=== PATIENT | female | born 1980 | race African-American/Black ===

== ENCOUNTER 2019-04-24 00:19 | Inpatient (IN) | payer OTHER ==
--- NOTE | 2019-04-24 01:23 | PDOC ---
History of Present Illness - General Chief Complaint: Blood Transfusion Stated Complaint: BLOOD TRANSFUSION Time Seen by Provider: 04/24/19 01:23 History Source: Patient Exam Limitations: No Limitations - History of Present Illness Initial Comments: 04/24/19 01:46 38yF w iron deficiency anemia 2/2 fibroids presenting w anemia requiring transfusion. Dr Iván MORENO scheduled fibroid removal surgery tomorrow, pre- op labs showed Hgb 5.7 3d ago, told to go to ED for blood transfusion today to be optimized for surgery. Associated lightheadness. No active bleeding noted in urine/bowel movements. Not on blood thinners. Has new mild R temporal headache for past hour. Denies fever, chest pain, SOB, ABD pain. Past History - Past Medical History Allergies/Adverse Reactions: Allergies Allergy/AdvReac Type Severity Reaction Status Date / Time tiotropium Allergy Severe TONGUE Verified 04/24/19 01:20 [From Spiriva with SWELLING HandiHaler] codeine Allergy Rash Verified 04/24/19 01:20 ASPIRI Allergy Severe CANT BREATH Uncoded 04/24/19 01:20 Home Medications: Ambulatory Orders Ferrous Gluconate [Fergon] 270 mg PO DAILY 04/24/19 Medroxyprogesterone Acetate [Provera] 10 mg PO DAILY 04/24/19 Anemia: Yes Asthma: Yes COPD: No Other medical history: uterine fibroids - Psycho Social/Smoking Cessation Hx Smoking History: Never smoked Hx Alcohol Use: No Drug/Substance Use Hx: No Review of Systems - Review of Systems Constitutional: No: Chills, Fever HEENTM: No: Eye Pain, Nose Pain, Throat Pain, Mouth Pain Respiratory: No: Cough, Shortness of Breath Cardiac (ROS): No: Chest Pain, Palpitations, Syncope ABD/GI: No: Abdominal Distended, Constipated, Diarrhea, Nausea, Vomiting : No: Burning, Dysuria, Flank Pain, Hematuria Musculoskeletal: No: Back Pain, Joint Pain Integumentary: No: Bruising, Dryness, Erythema Neurological: Yes: Headache. No: Numbness, Seizure, Tingling Psychiatric: No: Anxiety, Depression, Stressors Endocrine: No: Excessive Sweating, Flushing, Intolerance to Cold, Intolerance to Heat Hematologic/Lymphatic: Yes: Anemia *Physical Exam - Vital Signs Last Vital Signs Temp Pulse Resp BP Pulse Ox 98.3 F 84 14 137/72 100 01/12/20 01:05 04/24/19 01:05 04/24/19 01:05 04/24/19 01:05 04/24/19 01:05 - Physical Exam General Appearance: Yes: Nourished, Appropriately Dressed. No: Apparent Distress HEENT: positive: EOMI, YENNY, Normal Voice, Hearing Grossly Normal. negative: Scleral Icterus (R), Scleral Icterus (L), Nasal Congestion Respiratory/Chest: positive: Lungs Clear, Normal Breath Sounds. negative: Chest Tender, Respiratory Distress, Crackles, Rales, Rhonchi, Stridor, Wheezing Cardiovascular: positive: Regular Rhythm, Regular Rate, S1, S2, Systolic Murmur. negative: Edema Gastrointestinal/Abdominal: positive: Normal Bowel Sounds, Flat, Soft. negative : Tender, Organomegaly Integumentary: positive: Normal Color Neurologic: positive: pot sander II-XII NML intact, Fully Oriented, Alert, Normal Mood/ Affect, Normal Response, Responsive. negative: Numbness, Confused, Disoriented ED Treatment Course - LABORATORY CBC & Chemistry Diagram: 04/24/19 02:00 04/24/19 02:00 Medical Decision Making - Medical Decision Making 04/24/19 01:55 EKG NSR, HR 73, QTc 464, TWI V1 --- 38yF w iron deficiency anemia 2/2 fibroids presenting w lightheadedness d/t microcytic anemia (Hgb 5.5) from bleeding fibroids. Consented pt for blood transfusion, ordered 4u pRBC. Not . Given tylenol for headache. Found new systolic murmur on exam Called Dr Minor OBGYN - advised give blood transfusion, will not admit to OBGYN floor for indication Admit to m/s for anemia requiring transfusion Signed out to day team Discharge - Discharge Information Problems reviewed: Yes Clinical Impression/Diagnosis: Iron deficiency anemia due to chronic blood loss Condition: Stable Disposition: HOME - Admission No - Follow up/Referral Referrals: ON STAFF,NOT [Primary Care Provider] - - Patient Discharge Instructions Patient Printed Discharge Instructions: DI for Iron Deficiency Anemia-Adult Additional Instructions: You were seen for lightheadedness. Your blood count was low. We gave you blood Please follow up with your OBGYN doctor regarding your blood loss. Follow up with your primary care doctor regarding your heart murmur Come back to the ED if you lose consciousness, worsening chest pain, or trouble breathing - Post Discharge Activity
--- NOTE | 2019-04-24 01:25 | PDOC ---
Attending Attestation - Resident Resident Name: GuichoHipolito - ED Attending Attestation I have performed the following: I have examined & evaluated the patient, The case was reviewed & discussed with the resident, I agree w/resident's findings & plan - HPI HPI: 04/24/19 03:05 Pt was sent by her HAIR MACHINE OPERATOR for a blood transfusion prior to her HAIR MACHINE OPERATOR OR procedure tomorrow. Pt was found to have profound anemia. Here she will have basic labs and Type and screen prior to transfusion. - Physicial Exam PE: 04/24/19 03:06 Awake and alert x 3 No neuro deficits Abd soft NT ND chest clear Heart S1S2 RRR ext no clubbing cyanosis edema - Medical Decision Making 04/24/19 03:07 Pt has HB 5.5 She will get a 2U transfusion of PRBC. 04/24/19 06:10 Blood karoline is preparing the blood now, given the antibody screen just returned. Pt will get 4 U PRBC; each one requires 2 hrs for transfusion. She will be in the ER until noon. Pt will be signed out to the day team
[2019-04-24] MEDS ORDERED: ACETAMINOPHEN 1000 MG/100 ML VIAL (NON FORMULARY) IVPB ONE (01:45)
[2019-04-24] MEDS ORDERED: ACETAMINOPHEN INJECTION 100 ML IVPB ONE (02:03)
[2019-04-24 02:34] LABS: BASO % 0.6 % (0-2.0); EOS % 0.7 % (0-4.5); HEMATOCRIT 19.6 % (32.4-45.2); MCHC 27.9 g/dl (32.0-36.0); MEAN CELL VOLUME 69.5 fl (80-96); MEAN PLT VOLUME 6.8 fl (7.5-11.1); MONO % 8.2 % (3.8-10.2); NEUT % 49.5 % (42.8-82.8); PLATELET COUNT 335 K/MM3 (134-434); RBC 2.82 M/mm3 (3.60-5.2); RDW 20.2 % (11.6-15.6); WHITE BLOOD COUNT 6.4 K/mm3 (4.0-10.0)
[2019-04-24 02:55] LABS: MCH 19.4 pg (25.7-33.7)
[2019-04-24 02:57] LABS: ALBUMIN 3.3 g/dl (3.4-5.0); BILIRUBIN,TOTAL 0.3 mg/dL (0.2-1); BLOOD UREA NITROGEN 9.9 mg/dL (7-18); CALCIUM 8.5 mg/dL (8.5-10.1); CREATININE 0.8 mg/dL (0.55-1.3); INR 1.15 (0.83-1.09); PROTHROMBIN TIME (PATIENT) 13.6 SEC (9.7-13.0); TOT PROT 7.1 g/dl (6.4-8.2)
[2019-04-24 02:59] LABS: HEMOGLOBIN 5.5 GM/dL (10.7-15.3)
--- NOTE | 2019-04-24 07:16 | PDOC ---
*Physical Exam - Vital Signs Last Vital Signs Temp Pulse Resp BP Pulse Ox 98.3 F 84 14 137/72 100 04/24/19 01:05 04/24/19 01:05 04/24/19 01:05 04/24/19 01:05 04/24/19 01:05 ED Treatment Course - LABORATORY CBC & Chemistry Diagram: 04/24/19 02:00 04/24/19 02:00 - ADDITIONAL ORDERS Additional order review: Laboratory Results 04/24/19 04/24/19 04/24/19 02:00 02:00 02:00 PT with INR 13.60 H INR 1.15 H Sodium 139 Potassium 4.0 Chloride 108 H Carbon Dioxide 24 Anion Gap 6 L BUN 9.9 Creatinine 0.8 Est GFR (CKD-EPI)AfAm 108.39 Est GFR (CKD-EPI)NonAf 93.52 Random Glucose 117 H Calcium 8.5 Total Bilirubin 0.3 AST 13 L ALT 14 Alkaline Phosphatase 82 Total Protein 7.1 Albumin 3.3 L Serum , Qual Negative Blood Type Antibody Screen Crossmatch 04/24/19 02:00 PT with INR INR Sodium Potassium Chloride Carbon Dioxide Anion Gap BUN Creatinine Est GFR (CKD-EPI)AfAm Est GFR (CKD-EPI)NonAf Random Glucose Calcium Total Bilirubin AST ALT Alkaline Phosphatase Total Protein Albumin Serum , Qual Blood Type O POSITIVE Antibody Screen Positive Crossmatch See Detail 04/24/19 02:00 RBC 2.82 L MCV 69.5 L MCHC 27.9 L RDW 20.2 H MPV 6.8 L Neutrophils % 49.5 Lymphocytes % 41.0 H Monocytes % 8.2 Eosinophils % 0.7 Basophils % 0.6 - Medications Given in the ED: ED Medications Discontinued Medications Generic Name Dose Route Start Last Admin Trade Name Freq PRN Reason Stop Dose Admin Acetaminophen 1,000 mg 04/24/19 01:45 04/24/19 02:16 Ofirmev Injection - IVPB 04/24/19 01:46 1,000 mg ONCE ONE Administration Medical Decision Making - Medical Decision Making 04/24/19 07:16 Received sign out from Dr Lindo. Pt seen and assessed at bedside. Blood transfusion pending - not started yet. Pt only mildly lightheaded and hungry. VSS. Team spoke with pt's professor of nursing - does not want pt admitted to their service, will admit to med/surg hospitalist. Microblog sent. Admitting team accepted pt. Discharge - Discharge Information Problems reviewed: Yes Clinical Impression/Diagnosis: Iron deficiency anemia due to chronic blood loss Condition: Fair - Admission Yes - Follow up/Referral - Patient Discharge Instructions - Post Discharge Activity
--- NOTE | 2019-04-24 08:01 | PDOC ---
*Physical Exam - Vital Signs Last Vital Signs Temp Pulse Resp BP Pulse Ox 98.3 F 84 14 137/72 100 04/24/19 01:05 04/24/19 01:05 04/24/19 01:05 04/24/19 01:05 04/24/19 01:05 ED Treatment Course - LABORATORY CBC & Chemistry Diagram: 04/24/19 02:00 04/24/19 02:00 - ADDITIONAL ORDERS Additional order review: Laboratory Results 04/24/19 04/24/19 04/24/19 02:00 02:00 02:00 PT with INR 13.60 H INR 1.15 H Sodium 139 Potassium 4.0 Chloride 108 H Carbon Dioxide 24 Anion Gap 6 L BUN 9.9 Creatinine 0.8 Est GFR (CKD-EPI)AfAm 108.39 Est GFR (CKD-EPI)NonAf 93.52 Random Glucose 117 H Calcium 8.5 Total Bilirubin 0.3 AST 13 L ALT 14 Alkaline Phosphatase 82 Total Protein 7.1 Albumin 3.3 L Serum , Qual Negative Blood Type Antibody Screen Crossmatch 04/24/19 02:00 PT with INR INR Sodium Potassium Chloride Carbon Dioxide Anion Gap BUN Creatinine Est GFR (CKD-EPI)AfAm Est GFR (CKD-EPI)NonAf Random Glucose Calcium Total Bilirubin AST ALT Alkaline Phosphatase Total Protein Albumin Serum , Qual Blood Type O POSITIVE Antibody Screen Positive Crossmatch See Detail 04/24/19 02:00 RBC 2.82 L MCV 69.5 L MCHC 27.9 L RDW 20.2 H MPV 6.8 L Neutrophils % 49.5 Lymphocytes % 41.0 H Monocytes % 8.2 Eosinophils % 0.7 Basophils % 0.6 - Medications Given in the ED: ED Medications Discontinued Medications Generic Name Dose Route Start Last Admin Trade Name Freq PRN Reason Stop Dose Admin Acetaminophen 1,000 mg 04/24/19 01:45 04/24/19 02:16 Ofirmev Injection - IVPB 04/24/19 01:46 1,000 mg ONCE ONE Administration Medical Decision Making - Medical Decision Making 04/24/19 07:57 38yo female with symptomatic anemia needing 4units pRBC -pt scheduled for ACID ETCH OPERATOR procedure with Dr. Minor tomorrow -pt with anemia -transfusion ordered -microblog sent to [facility] for admission for symptomatic anemia/blood transfusion and preop for ACID ETCH OPERATOR tomorrow 04/24/19 08:48 the hospitalist has placed admission orders Discharge - Discharge Information Problems reviewed: Yes Clinical Impression/Diagnosis: Iron deficiency anemia due to chronic blood loss Condition: Fair - Admission Yes - Follow up/Referral - Patient Discharge Instructions - Post Discharge Activity
--- NOTE | 2019-04-24 08:29 | EKG ---
Test Reason : Blood Pressure : / mmHG Vent. Rate : 073 BPM Atrial Rate : 073 BPM P-R Int : 144 ms QRS Dur : 072 ms QT Int : 422 ms P-R-T Axes : 052 042 022 degrees QTc Int : 464 ms NORMAL SINUS RHYTHM LOW VOLTAGE QRS BORDERLINE ECG NO PREVIOUS ECGS AVAILABLE Confirmed by MAR WOODRUFF MD ([id number]) on 04/24/2019 8:29:27 AM Referred By: Confirmed By:MAR WOODRUFF MD
[2019-04-24 11:48] VITALS: BMI 38.7
--- NOTE | 2019-04-24 18:10 | HP ---
Admitting History and Physical - Primary Care Physician PCP: Stacy Minor - Admission Chief Complaint: lightheaded History of Present Illness: 38 year old female PMHx KIMMIE secondary to fibroids, scheduled for fibroid removal surgery tomorrow presents with hb 5.5 and sent to ED by clinical laboratory technician, Dr. Minor for blood transfusion preoperative. Patient states she has had a headache for a few days. Denies blood in urine and stool. No cp, sob, no other complaints. History Source: Patient Limitations to Obtaining History: No Limitations - Past Medical History Reproductive: Yes: Fibroids ...LMP Comment: unknown ...: No Heme/Onc: Yes: Anemia (KIMMIE) - Past Surgical History Past Surgical History: Yes: None - Smoking History Smoking history: Never smoked - Alcohol/Substance Use Hx Alcohol Use: No Home Medications - Allergies Allergies/Adverse Reactions: Allergies Allergy/AdvReac Type Severity Reaction Status Date / Time tiotropium Allergy Severe TONGUE Verified 04/24/19 01:20 [From Spiriva with SWELLING HandiHaler] codeine Allergy Rash Verified 04/24/19 01:20 ASPIRI Allergy Severe CANT BREATH Uncoded 04/24/19 01:20 - Home Medications Home Medications: Ambulatory Orders Ferrous Gluconate [Fergon] 270 mg PO DAILY 04/24/19 Medroxyprogesterone Acetate [Provera] 10 mg PO DAILY 04/24/19 Family Medical History Family History: Denies Review of Systems - Review of Systems Constitutional: reports: Lethargy Eyes: reports: No Symptoms HENT: reports: No Symptoms Neck: reports: No Symptoms Cardiovascular: reports: No Symptoms Respiratory: reports: No Symptoms Gastrointestinal: reports: No Symptoms Genitourinary: reports: No Symptoms Breasts: reports: No Symptoms Reported Musculoskeletal: reports: No Symptoms Integumentary: reports: No Symptoms Neurological: reports: Headache Endocrine: reports: No Symptoms Hematology/Lymphatic: reports: No Symptoms Psychiatric: reports: No Symptoms Physical Examination Vital Signs: Vital Signs Temperature 98.6 F 04/24/19 14:00 Pulse Rate 74 04/24/19 14:00 Respiratory Rate 18 04/24/19 14:00 Blood Pressure 135/74 04/24/19 14:00 O2 Sat by Pulse Oximetry (%) 100 04/24/19 08:53 Constitutional: Yes: Well Nourished, No Distress, Calm Eyes: Yes: Sclera Icterus HENT: Yes: WNL, Atraumatic, Normocephalic Neck: Yes: WNL, Supple, Trachea Midline Cardiovascular: Yes: WNL, Regular Rate and Rhythm Respiratory: Yes: WNL, Regular, CTA Bilaterally Gastrointestinal: Yes: WNL, Normal Bowel Sounds, Soft Breast(s): Yes: WNL Musculoskeletal: Yes: WNL Extremities: Yes: WNL Edema: No Labs: CBC, BMP 04/24/19 02:00 04/24/19 02:00 Problem List - Problems (1) Iron deficiency anemia due to chronic blood loss Code(s): D50.0 - IRON DEFICIENCY ANEMIA SECONDARY TO BLOOD LOSS (CHRONIC) Assessment/Plan 38 yo female with symptomatic anemia due to fibroids 1) Symptomatic anemia secondary to fibroids -transfuse 4 units PRBCs -surgery for fibroid removal scheduled for tomorrow -SHOE REPAIR COBBLER Dr. Minor -tylenol for headache -monitor h/h in AM
--- NOTE | 2019-04-24 18:10 | PN ---
Progress Note, Physician - Objective Vital Signs: Vital Signs Temperature 98.6 F 04/24/19 14:00 Pulse Rate 74 04/24/19 14:00 Respiratory Rate 18 04/24/19 14:00 Blood Pressure 135/74 04/24/19 14:00 O2 Sat by Pulse Oximetry (%) 100 04/24/19 08:53 Labs: CBC, BMP 04/24/19 02:00 04/24/19 02:00 INR, PTT INR 1.15 (0.83-1.09) H 04/24/19 02:00
[2019-04-24] MEDS ORDERED: ACETAMINOPHEN 1000 MG/100 ML VIAL (NON FORMULARY) IVPB PRN (18:43)
[2019-04-24] MEDS ORDERED: SODIUM CHLORIDE 1,000 ML IV SCH (21:00)
[2019-04-25] MEDS ORDERED: BUPIVACAINE LIPOSOME/PF (EXPAREL) 266 MG/20 ML VIAL ONE (07:19)
[2019-04-25] MEDS ORDERED: ROPIVACAINE HCL 0.5% 30ML VIAL ONE (07:20)
[2019-04-25] MEDS ORDERED: ROCURONIUM BROMIDE 50 MG/5 ML SYRINGE ONE ×2 (07:39→09:54)
[2019-04-25] MEDS ORDERED: PROPOFOL 20 ML ONE (07:39)
[2019-04-25] MEDS ORDERED: fentaNYL CITRATE 250 MCG/5 ML VIAL ONE (07:40)
[2019-04-25] MEDS ORDERED: MIDAZOLAM HCL 2 MG/2 ML SINGLE DOSE VIAL ONE ×2 (07:44)
[2019-04-25 07:48] LABS: HEMATOCRIT 29.2 % (32.4-45.2); HEMOGLOBIN 9.4 GM/dL (10.7-15.3); MCH 23.6 pg (25.7-33.7); MEAN CELL VOLUME 73.8 fl (80-96); MEAN PLT VOLUME 7.3 fl (7.5-11.1); PLATELET COUNT 281 K/MM3 (134-434); RBC 3.96 M/mm3 (3.60-5.2); RDW 21.7 % (11.6-15.6); WHITE BLOOD COUNT 5.5 K/mm3 (4.0-10.0)
[2019-04-25] MEDS ORDERED: ceFAZolin SODIUM 1 GM VIAL IVPB ONE (08:40)
[2019-04-25 08:54] LABS: CALCIUM 8.3 mg/dL (8.5-10.1); CREATININE 0.8 mg/dL (0.55-1.3); POTASSIUM 4.1 mmol/L (3.5-5.1)
[2019-04-25] MEDS ORDERED: ONDANSETRON 4 MG/2 ML VIAL IVPUSH PRN ×2 (11:44→11:54)
[2019-04-25] MEDS ORDERED: HYDROmorphone *PCA* 10MG/50ML DISP.SYRIN ONE (11:47)
--- NOTE | 2019-04-25 11:50 | OP ---
Operative Note - Note: Operative Date: 04/25/19 Pre-Operative Diagnosis: uterine fibroids Operation: vaginal myomectomy, abdominal myomectomy with lysis of adhesion Surgeon: Stacy Minor Entry Level Lab Technician: Nancy Sánchez Anesthesiologist/WET POUR SUPERVISOR: Helena Paez MD Anesthesia: General Specimens Removed: fibroids, left ovarian cyst capsule, periotneal cyst Estimated Blood Loss (mls): 200 Drains, Volume Out (mls): 400 (leslie) Fluid Volume Replaced (mls): 2,400 Operative Report Dictated: Yes
[2019-04-25] MEDS ORDERED: DEXAMETHASONE SOD PHOSPHATE 4 MG/1 ML VIAL IVPUSH PRN (11:54)
--- NOTE | 2019-04-25 11:54 | SURG ---
Surgery Pallet Stone Inserter Note Pallet Stone Inserter: Nancy Sánchez PA-C Date of Service: 04/25/19 Diagnosis: uterine fibroids Procedure: vaginal myomectomy, abdominal myomectomy with lysis of adhesion I was present for the entirety of the operative procedure. For further detail, please refer to operative report. Visit type - Case Type Case Type: ED Admission - Emergency Emergency Visit: Yes ED Registration Date: 04/24/19 Care time: The patient presented to the Emergency Department on the above date and was hospitalized for further evaluation of their emergent condition. - New patient This patient is new to me today: Yes Date on this admission: 04/25/19
[2019-04-25] MEDS ORDERED: LACTATED RINGERS SOLUTION 1,000 ML IV SCH (12:00)
[2019-04-25] MEDS ORDERED: HYDROmorphone *PCA* 10MG/50ML DISP.SYRIN PCA SCH (12:00)
[2019-04-25] MEDS ORDERED: SODIUM CHLORIDE 1,000 ML IV SCH (12:04)
[2019-04-25] MEDS ORDERED: CEFAZOLIN 1 GM in DEXTROSE 5%-WATER - 50 ML IVPB SCH (17:00)
[2019-04-25] MEDS: CEFAZOLIN 1 GM/D5W 1 GM/50 ML BAG IVPB SCH (17:37)
--- NOTE | 2019-04-25 18:08 | PN ---
Physical Exam: SUBJECTIVE: Patient seen and examined. She underwent vaginal and abdominal myomectomy with lysis of adhesions today and is complaining of abdominal pain and is getting some relief with Dilaudid GAS ADJUSTER. OBJECTIVE: Vital Signs Period Temp Pulse Resp BP Sys/Martinez Pulse Ox Last 24 Hr 97.9 F-98.6 F 64-81 14-19 115-133/48-86 96-100 GENERAL: The patient is awake, alert, and fully oriented, in no acute distress. LUNGS: Breath sounds equal, clear to auscultation bilaterally, no wheezes, no crackles, no accessory muscle use. HEART: Regular rate and rhythm, S1, S2 without murmur, rub or gallop. ABDOMEN: Obese, soft, (+) incisional tenderness, nondistended, normoactive bowel sounds, no guarding, no rebound, no hepatosplenomegaly, no masses. EXTREMITIES: 2+ pulses, warm, well-perfused, no edema. Laboratory Results - last 24 hr 04/24/19 04/25/19 04/25/19 02:00 07:13 08:00 WBC 5.5 RBC 3.96 Hgb 9.4 L Hct 29.2 L D MCV 73.8 L MCH 23.6 L D MCHC 32.0 RDW 21.7 H Plt Count 281 MPV 7.3 L Sodium 138 Potassium 4.1 Chloride 110 H Carbon Dioxide 22 Anion Gap 6 L BUN 7.0 Creatinine 0.8 Est GFR (CKD-EPI)AfAm 108.39 Est GFR (CKD-EPI)NonAf 93.52 Random Glucose 121 H Calcium 8.3 L Blood Type O POSITIVE Antibody Screen Positive Antibody Identification Anti-k Antigen Identification K Antigen - NEGATIVE Crossmatch See Detail Active Medications Generic Name Dose Route Start Last Admin Trade Name Freq PRN Reason Stop Dose Admin Acetaminophen 650 mg 04/25/19 11:44 Tylenol - PO Q4H PRN FEVER Acetaminophen 1,000 mg 04/25/19 12:04 Ofirmev Injection - IVPB Q6H PRN PAIN LEVEL 1-5 Dexamethasone Sodium Phosphate 4 mg 04/25/19 11:54 Decadron Injection - IVPUSH ONCE PRN NAUSEA AND/OR VOMITING Diphenhydramine HCl 12.5 mg 04/25/19 11:54 Benadryl Injection - IVPUSH ONCE PRN FOR ITCHING Hydromorphone HCl 10 mg 04/25/19 12:00 04/25/19 11:50 Hydromorphone 10 Mg/50 Ml-Ns GAS ADJUSTER 04/26/19 11:59 10 mg GAS ADJUSTER ELIZA Administration Protocol Sodium Chloride 1,000 mls @ 50 mls/hr 04/25/19 12:04 04/25/19 13:15 Normal Saline - IV 04/25/19 20:49 0 mls ASDIR ELIZA Administration Lactated Ringer's 1,000 mls @ 125 mls/hr 04/25/19 12:00 04/25/19 13:40 Lactated Ringers Solution IV 125 mls/hr ASDIR ELIZA Administration Cefazolin Sodium 1 gm in 50 mls @ 100 mls/hr 04/25/19 17:00 04/25/19 17:37 Ancef 1 Gm Premixed Ivpb - IVPB 04/26/19 01:29 100 mls/hr Q8H ELIZA Administration Ondansetron HCl 4 mg 04/25/19 11:44 Zofran Injection IVPUSH Q4H PRN NAUSEA AND/OR VOMITING Simethicone 80 mg 04/25/19 11:44 Mylicon - PO Q4H PRN GAS ASSESSMENT/PLAN: This is a 38 year old woman with a history of anemia, fibroids who presented to the ED with anemia prior to undergoing myomectomy. 1. Acute on chronic iron deficiency anemia secondary to fibroids - Transfused 4 units PRBCs - s/p vaginal and abominal myomectomy today - Pain control with Dilaudid GAS ADJUSTER - Monitor hemoglobin Visit type - Emergency Visit Emergency Visit: Yes ED Registration Date: 04/24/19 Care time: The patient presented to the Emergency Department on the above date and was hospitalized for further evaluation of their emergent condition. - New Patient This patient is new to me today: Yes Date on this admission: 04/25/19 - Critical Care Critical Care patient: No - Discharge Referral Referred to [facility] Med P.C.: No
[2019-04-25 20:58] LABS: HEMATOCRIT 30.2 % (32.4-45.2); HEMOGLOBIN 9.3 GM/dL (10.7-15.3); MCHC 30.9 g/dl (32.0-36.0); MEAN CELL VOLUME 74.4 fl (80-96); RBC 4.05 M/mm3 (3.60-5.2); RDW 22.4 % (11.6-15.6); WHITE BLOOD COUNT 14.5 K/mm3 (4.0-10.0)
[2019-04-25 21:03] LABS: BLOOD UREA NITROGEN 9.6 mg/dL (7-18); CALCIUM 8.5 mg/dL (8.5-10.1); CREATININE 0.9 mg/dL (0.55-1.3); POTASSIUM 4.3 mmol/L (3.5-5.1)
[2019-04-25] MEDS: ACETAMINOPHEN 1000 MG/100 ML VIAL (NON FORMULARY) IVPB PRN (21:36)
[2019-04-26] MEDS: CEFAZOLIN 1 GM/D5W 1 GM/50 ML BAG IVPB SCH (01:45)
[2019-04-26 02:19] LABS: HEMATOCRIT 27.7 % (32.4-45.2); HEMOGLOBIN 8.7 GM/dL (10.7-15.3); MCH 22.9 pg (25.7-33.7); MCHC 31.5 g/dl (32.0-36.0); MEAN CELL VOLUME 72.6 fl (80-96); MEAN PLT VOLUME 7.3 fl (7.5-11.1); PLATELET COUNT 291 K/MM3 (134-434); RBC 3.81 M/mm3 (3.60-5.2); RDW 22.2 % (11.6-15.6); WHITE BLOOD COUNT 12.5 K/mm3 (4.0-10.0)
--- NOTE | 2019-04-26 07:54 | PN ---
Progress Note (short form) - Note Progress Note: Surgery POD #1 vaginal myomectomy, abdominal myomectomy with lysis of adhesion. Patient states her pain is controlled and she hasn't been using the MARBLE FINISHER that much. She still has the leslie and it tolerating ice chips, she hasn't tried any clears yet. She denies any CP,SOB, N/V, fever or chills. Vital Signs Temp 98.1 F 04/26/19 06:00 Pulse 72 04/26/19 06:00 Resp 20 04/26/19 06:00 BP 105/59 L 04/26/19 06:00 Pulse Ox 98 04/25/19 13:40 Intake & Output 04/25/19 04/25/19 04/26/19 11:59 23:59 11:59 Intake Total 3634 562 1350 Output Total 450 800 900 Balance 3184 -238 450 Intake: IV 2834 562 1200 Lactated Ringers Solution 562 1200 1,000 ml @ 125 mls/hr IV ASDIR ELIZA Rx#: [id number] Normal Saline - 1,000 ml 284 @ 50 mls/hr IV ASDIR ELIZA Rx#:[id number] IVPB 100 150 Oral 0 Packed Cells 700 Output: Urine 250 800 900 Leslie 500 900 Estimated Blood Loss 200 Other: Voiding Method Indwelling Catheter Indwelling Catheter # Unmeasured Voids Void 1 Bowel Movement No CBC, BMP 04/26/19 08:55 PE: A&Ox3, NAD Unlabored resp on RA ABD: obese, soft, ND, with mild ttp throughout appropriate to status. pressure dressing c/d/i with surrounding tissue intact and no evidence of tracking erythema or active drainage. Problem List - Problems (1) Status post myomectomy Assessment/Plan: POD #1 vaginal and abdominal myomectomy with post op anemia, vitals signs stable. -H&H stable f/u AM labs -DVT prophylaxis with Lovenox, scds and ambulation -OOB as tolerated -D/c leslie now -Clear diet advance as tolerated - d/c MARBLE FINISHER start oral pain meds - Iron and mulitvitamin Evaluation and plan discussed with Dr Minor Code(s): Z98.890 - OTHER SPECIFIED POSTPROCEDURAL STATES
[2019-04-26] MEDS: ACETAMINOPHEN 1000 MG/100 ML VIAL (NON FORMULARY) IVPB PRN (08:29)
[2019-04-26 09:24] LABS: HEMATOCRIT 25.2 % (32.4-45.2); HEMOGLOBIN 8.1 GM/dL (10.7-15.3); MCH 23.1 pg (25.7-33.7); MCHC 32.2 g/dl (32.0-36.0); MEAN CELL VOLUME 71.7 fl (80-96); MEAN PLT VOLUME 6.9 fl (7.5-11.1); PLATELET COUNT 280 K/MM3 (134-434); RBC 3.52 M/mm3 (3.60-5.2); RDW 22.7 % (11.6-15.6); WHITE BLOOD COUNT 10.1 K/mm3 (4.0-10.0)
[2019-04-26 09:51] LABS: BLOOD UREA NITROGEN 9.6 mg/dL (7-18); CALCIUM 8.2 mg/dL (8.5-10.1); CREATININE 0.7 mg/dL (0.55-1.3); POTASSIUM 3.9 mmol/L (3.5-5.1)
[2019-04-26] MEDS ORDERED: ENOXAPARIN NA (PORCINE) 40 MG/0.4 ML DISP.SYRIN SQ SCH (10:00)
--- NOTE | 2019-04-26 10:03 | OP ---
Operative Note - Note: Operative Date: 04/25/19 Pre-Operative Diagnosis: fibroid uterus Operation: intra operative consultation and lysis of adhesions Findings: extensive adhesions of cecum and terminal ileum to uterine fundus and posterior aspect. Surgeon: Tyrone Trujillo Repack Room Worker: Nancy Sánchez Anesthesiologist/CHAIN DYER: Helena Paez MD Anesthesia: General Specimens Removed: none
[2019-04-26] MEDS: FERROUS SO4 325 MG TABLET (FP) PO SCH (10:18)
[2019-04-26] MEDS: ASCORBIC ACID 500 MG TABLET (FP) PO SCH (10:19)
[2019-04-26] MEDS: ENOXAPARIN NA (PORCINE) 40 MG/0.4 ML DISP.SYRIN SQ SCH (11:15)
[2019-04-26] MEDS ORDERED: PCA PUMP KEY 1 EACH EACH ONE (11:32)
--- NOTE | 2019-04-26 12:28 | PN ---
Progress Note, Physician Chief Complaint: vaginal bleeding History of Present Illness: patient feeling ok, hungry, passing flatus. - Current Medication List Current Medications: Active Medications Acetaminophen (Tylenol -) 650 mg PO Q4H PRN PRN Reason: FEVER Acetaminophen (Ofirmev Injection -) 1,000 mg IVPB Q6H PRN PRN Reason: PAIN LEVEL 1-5 Last Admin: 04/26/19 08:29 Dose: 1,000 mg Ascorbic Acid (Vitamin C -) 500 mg PO DAILY [facility] Last Admin: 04/26/19 10:19 Dose: Not Given Dexamethasone Sodium Phosphate (Decadron Injection -) 4 mg IVPUSH ONCE PRN PRN Reason: NAUSEA AND/OR VOMITING Diphenhydramine HCl (Benadryl Injection -) 12.5 mg IVPUSH ONCE PRN PRN Reason: FOR ITCHING Docusate Sodium (Colace -) 100 mg PO TID [facility] Enoxaparin Sodium (Lovenox -) 40 mg SQ DAILY [facility] Last Admin: 04/26/19 11:15 Dose: 40 mg Ferrous Sulfate (Feosol -) 325 mg PO DAILY [facility] Last Admin: 04/26/19 10:18 Dose: Not Given Lactated Ringer's (Lactated Ringers Solution) 1,000 mls @ 125 mls/hr IV ASDIR [facility] Last Admin: 04/25/19 13:40 Dose: 125 mls/hr Ondansetron HCl (Zofran Injection) 4 mg IVPUSH Q4H PRN PRN Reason: NAUSEA AND/OR VOMITING Oxycodone HCl (Roxicodone -) 5 mg PO Q4H PRN PRN Reason: PAIN LEVEL 1-5 Oxycodone HCl (Roxicodone -) 10 mg PO Q4H PRN PRN Reason: PAIN LEVEL 6-10 Simethicone (Mylicon -) 80 mg PO Q4H PRN PRN Reason: GAS - Objective Vital Signs: Vital Signs Temperature 98.1 F 04/26/19 06:00 Pulse Rate 72 04/26/19 06:00 Respiratory Rate 20 04/26/19 06:00 Blood Pressure 105/59 L 04/26/19 06:00 O2 Sat by Pulse Oximetry (%) 98 04/25/19 13:40 Constitutional: Yes: Well Nourished, No Distress, Calm Cardiovascular: Yes: WNL, Regular Rate and Rhythm Respiratory: Yes: WNL, Regular, CTA Bilaterally Gastrointestinal: Yes: Soft, Other (incisional site tender to palpation, wrapped , cdi). No: Distention, Tenderness, Epigastrium, Tenderness, Rebound Musculoskeletal: Yes: WNL Extremities: Yes: WNL Edema: No Labs: CBC, BMP 04/26/19 08:55 04/26/19 08:55 INR, PTT INR 1.15 (0.83-1.09) H 04/24/19 02:00 Problem List - Problems (1) Iron deficiency anemia due to chronic blood loss Code(s): D50.0 - IRON DEFICIENCY ANEMIA SECONDARY TO BLOOD LOSS (CHRONIC) (2) Status post myomectomy Code(s): Z98.890 - OTHER SPECIFIED POSTPROCEDURAL STATES Assessment/Plan 1) 38 yo female with symptomatic anemia due to fibroids 1) Symptomatic anemia secondary to fibroids -POD #1 vaginal and abdominal myomectomy with post op anemia -monitor h/h -advance diet -OOB -PO pain meds -iron supp -surgery eval
[2019-04-26] MEDS: oxyCODONE HCL 5 MG TABLET PO PRN ×3 (12:49→21:27)
[2019-04-26] MEDS: SIMETHICONE 80 MG TAB.CHEW (FP) PO PRN ×3 (12:50→21:27)
--- NOTE | 2019-04-26 13:32 | OP ---
DATE OF OPERATION: 04/25/2019 PREOPERATIVE DIAGNOSIS: Uterine and vaginal fibroids. POSTOPERATIVE DIAGNOSIS: Uterine and vaginal fibroids plus abdominal adhesions. PROCEDURE: Intraoperative general surgery consultation and lysis of adhesions. SURGEON: Tyrone Trujillo MD PERSONNEL QUALITY ASSURANCE AUDITOR: MICHAEL Osman ANESTHESIA: General. ESTIMATED BLOOD LOSS: None. DRAINS: None. SPECIMENS: None. OPERATIVE FINDINGS: I was called to the operating room during gynecological surgery being performed by Dr. Stacy Minor for vaginal and abdominal myomectomies when extensive adhesions were encountered of the cecum and terminal ileum to the uterine fundus and posterior wall at laparotomy. I was asked to assist and lyse these adhesions. The rest of the findings were unremarkable. DESCRIPTION OF PROCEDURE: With the patient already under general anesthesia, intraoperative consultation was done, which revealed the previously noted findings. Using a combination of blunt and sharp dissection, the terminal ileum and cecal adhesions to the uterus were lysed. Once these adhesions were lysed, the cecum and small intestine were inspected for evaluation of viability and/or compromise of serosa, and there was none present. At this point, the remainder of the surgery was turned back over to the operating wet pan operator, Dr. Minor, who will dictate the rest of the report. I, Tyrone Trujillo, was physically present in the operating room from the time I was consulted until the completion of the lysis of adhesions. MD MARILEE Cunningham/[id number] MTDD
[2019-04-26] MEDS: DOCUSATE SODIUM 100 MG CAPSULE (FP) PO SCH ×2 (13:52→21:27)
--- NOTE | 2019-04-26 14:10 | PN ---
Progress Note (short form) - Note Progress Note: 38F s/p vaginal and abdominal myomectomy under GA with bilateral TAP blocks. No new c/o. Vital Signs Temp 98.1 F 04/26/19 06:00 Pulse 72 04/26/19 06:00 Resp 20 04/26/19 06:00 BP 105/59 L 04/26/19 06:00 Pulse Ox 98 04/25/19 13:40 Intake & Output 04/25/19 04/26/19 04/26/19 23:59 11:59 23:59 Intake Total 562 1350 Output Total 950 900 Balance -388 450 Intake: IV 562 1200 Lactated Ringers Solution 562 1200 1,000 ml @ 125 mls/hr IV ASDIR ELIZA Rx#: [id number] IVPB 150 Output: Urine 950 900 Chen 500 900 Other: Voiding Method Indwelling Catheter Indwelling Catheter Bowel Movement No CBC, BMP 04/26/19 08:55 04/26/19 08:55 - No anesthesia complications
--- NOTE | 2019-04-26 15:11 | PATH ---
Surgical Pathology Report Patient Name: DARIUS KLEIN [facility]. Rec. 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 Specimen(s) Received A: MYOMA B: LEFT CYST C: PERITONEAL CYST D: FIBROID, MYOMA,LEIOMYOMA Clinical History Myomatous uterus, iron deficiency anemia due to chronic blood loss Final Diagnosis A. MYOMA, MYOMECTOMY: 27 G, LEIOMYOMA. B. CYST, LEFT, CYSTECTOMY: FRAGMENTS OF OVARIAN TISSUE AND FOLLICULAR CYST(S). C. PERITONEAL CYST, EXCISION: MESOTHELIAL LINED FIBROMEMBRANOUS TISSUE WITH MILD CHRONIC INFLAMMATION. D. FIBROID, MYOMECTOMY: 2 G, LEIOMYOMA. Electronically Signed Adeola James M.D. Gross Description A. Received in formalin labeled "myoma," is a 27 g, 4.8 x 3.7 x 3.3 cm jordan, rubbery nodule, consistent with a fibroid. Sectioning reveals jordan, rubbery parenchyma with whorled architecture. No areas of hemorrhage or necrosis are identified. Stove Mounter sections are submitted in 4 cassettes. B. Received in formalin labeled "left cyst," is a 2.8 x 1.0 x 0.2 cm jordan, focally hemorrhagic disrupted cyst. The specimen is submitted in toto in one cassette. C. Received in formalin labeled "peritoneal cyst," is a 2.7 x 1.3 x 0.2 cm pink jordan portion of soft tissue, possibly consistent with a disrupted cyst. The specimen is submitted in toto in one cassette. D. Received in formalin labeled "fibroid," is a 2 g, 1.8 x 1.7 x 1.1 cm jordan, rubbery nodule, consistent with a fibroid. Sectioning reveals jordan, rubbery parenchyma with whorled architecture. No areas of hemorrhage or necrosis are identified. The specimen is entirely submitted in 2 cassettes. DL/04/25/2019 saudi/04/25/2019
[2019-04-26] MEDS: ACETAMINOPHEN 325 MG TABLET (FP) PO PRN ×2 (17:20→21:28)
[2019-04-27] MEDS: oxyCODONE HCL 5 MG TABLET PO PRN ×3 (00:33→11:03)
[2019-04-27] MEDS: ACETAMINOPHEN 325 MG TABLET (FP) PO PRN ×4 (00:33→14:25)
[2019-04-27] MEDS: SIMETHICONE 80 MG TAB.CHEW (FP) PO PRN ×2 (00:34→11:03)
[2019-04-27] MEDS: DOCUSATE SODIUM 100 MG CAPSULE (FP) PO SCH (05:16)
[2019-04-27 09:21] LABS: BASO % 0.2 % (0-2.0); EOS % 0.7 % (0-4.5); HEMATOCRIT 27.5 % (32.4-45.2); HEMOGLOBIN 8.5 GM/dL (10.7-15.3); LYMPH % 20.8 % (8-40); MCH 22.5 pg (25.7-33.7); MCHC 30.8 g/dl (32.0-36.0); MEAN PLT VOLUME 7.5 fl (7.5-11.1); NEUT % 67.3 % (42.8-82.8); PLATELET COUNT 311 K/MM3 (134-434); RBC 3.77 M/mm3 (3.60-5.2); RDW 23.3 % (11.6-15.6); WHITE BLOOD COUNT 8.8 K/mm3 (4.0-10.0)
[2019-04-27 09:52] LABS: ALBUMIN 2.9 g/dl (3.4-5.0); BILIRUBIN,TOTAL 0.6 mg/dL (0.2-1); BLOOD UREA NITROGEN 7.2 mg/dL (7-18); CALCIUM 8.2 mg/dL (8.5-10.1); CREATININE 0.8 mg/dL (0.55-1.3); POTASSIUM 3.7 mmol/L (3.5-5.1); TOT PROT 6.7 g/dl (6.4-8.2)
[2019-04-27] MEDS ORDERED: BISACODYL 10 MG SUPP.RECT RC PRN (10:14)
--- NOTE | 2019-04-27 10:14 | PN ---
Progress Note (short form) - Note Progress Note: POD#2 Pt states that she is oob and ambulating, passing flatus. No BM. No complaints of dizziness, cp or sob. Light vaginal bleeding noted from time to time/not saturating a pad. Vital Signs Period Temp Pulse Resp BP Sys/Martinez Pulse Ox Last 24 Hr 98.3 F-98.8 F 76-88 18-18 109-121/64-71 GEN: A&0x3, NAD CV: RRR Lungs: CTA b/l anteriorly ABD: soft, non-distended, inc tenderness. Inc c/d/i with steri-strips LE: no calf tenderness or swelling noted b/l. CBC, BMP 04/27/ 08:50 04/27/19 08:50 A/P: 38 yo female s/p vagina/abd myomectomy with lysis of adhesion Continue regular diet D/w Dr. Trujillo, ok to give dulcolax per rectum OOB and ambulate, lovenox SQ for DVT ppx oral pain medications H&H stable, continue oral iron D/w Dr. Minor, plan for discharge
[2019-04-27] MEDS: ASCORBIC ACID 500 MG TABLET (FP) PO SCH (10:45)
[2019-04-27] MEDS: ENOXAPARIN NA (PORCINE) 40 MG/0.4 ML DISP.SYRIN SQ SCH (10:45)
[2019-04-27] MEDS: FERROUS SO4 325 MG TABLET (FP) PO SCH (10:45)
[2019-04-27 11:17] LABS: ANISOCYTOSIS 2+; MACROCYTOSIS 0; PLATELET ESTIMATE NORMAL; TEAR DROP CELLS 1+
[2019-04-27 15:01] VITALS: BP 112/55; PULSE 87; TEMP 99
--- NOTE | 2019-05-03 09:17 | OP ---
DATE OF OPERATION: 04/25/2019 PREOPERATIVE DIAGNOSIS: Leiomyomatous uterus. OPERATION: Vaginal myomectomy, abdominal myomectomy and lysis of filmy adhesions. SURGEON: Francisco Duffy MD OFFICE NURSE: MICHAEL Osman ANESTHESIA: General. DESCRIPTION OF PROCEDURE: The patient was taken to the operating room, placed in the dorsal lithotomy position, prepped and draped in the usual sterile fashion. A time-out was performed in accordance with hospital regulation. A Chen catheter was then inserted into the bladder. Attention was then drawn to the vagina, where a tenaculum was placed on the cervix after speculum was placed in the vagina. A large 4- to 5-cm myoma typical of leiomyoma was protruding into the cervix. Using sharp and blunt techniques, the myoma was then removed and submitted to pathology. Attention was then drawn to the abdomen, where a Pfannenstiel skin incision was made with a scalpel. Cautery was then used to go through the layers of the abdominal wall to the level of the fascia. The fascia was cut in the midline. Cautery was then used to open the fascia in a smiling fashion. Jim was then used to bluntly and sharply dissect the rectus muscle off the fascia. The muscle was split in the midline, and the peritoneal cavity entered, and carried upward and downward. 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 The uterus was noted severely adherent to the anterior aspect of the abdomen and also noted to be adherent to the bladder. Bowel was noted to be severely adherent on the right side. The uterus was unable to be elevated due to numerous adhesions. An enterolysis was done. However, an intraoperative consult was then called with Dr. Trujillo to perform the rest of the enterolysis due to the severe dense adhesions noted from the bowel to the uterus. After Dr. Trujillo had cleaned up the bowel off of the uterus, the attention was then draw to the uterus, where a myoma was palpated and removed using cautery. V-Loc suture was then used to close the surface of the uterus and 0 Vicryl sutures were used to close the muscle of the uterus. Hemostasis was achieved. Unable to palpate other various myomas in the uterus, and due to the extensive adhesions, the uterus was noted to be severely adherent anteriorly to the bladder. Attention was then drawn to not perform any further removal of myomas. Tubes were unable to be visualized due to adhesions on the left and the right sides. The peritoneum was then closed. Muscle was reapproximated using 0 Vicryl suture. The fascia was then closed using 0 Vicryl suture in 2 parts. The skin was then closed using 3-0 Vicryl in subcuticular fashion. The wound was washed and dressed. The patient tolerated the procedure well. Estimated blood loss was approximately mL. The patient was taken to the recovery room in stable condition. FRANCISCO DUFFY M.D. [id number]
== END 2019-04-27 15:30 | disposition home or self-care (01) | DRG 743 ==
LOC: JER 00:19 → JERBED 07:41 → J3W 10:28
PROVIDERS: ADMIT Internal Medicine; ATTEND Internal Medicine
PROC: 30233N1 Transfusion of Nonautologous Red Blood Cells into Peripheral Vein, Percutaneous Approach (ICD-10-PCS; 2019-04-24)
PROC: 0UB90ZZ Excision of Uterus, Open Approach (ICD-10-PCS; principal; 2019-04-25 07:30)
PROC: 0DNW0ZZ Release Peritoneum, Open Approach (ICD-10-PCS; 2019-04-25 07:30)
DX: D25.9 Leiomyoma of uterus, unspecified (principal); D50.0 Iron deficiency anemia secondary to blood loss (chronic); K66.0 Peritoneal adhesions (postprocedural) (postinfection); N83.02 Follicular cyst of left ovary
CPT/HCPCS: 36415; 36430; 36511; 80048; 80053; 84703; 85025; 85027; 85610; 86850; 86870; 86900; 86901; 86902; 86922; 88304-TC; 88305-TC; 93005; 93010; 94760; 99284-25; 99285-25; J0131; J7030; P9038; P9058